=== PATIENT | female | born 1995 | race Caucasian/White ===

== ENCOUNTER → 2020-09-11 | Outpatient (CLI) | payer OTHER ==
--- NOTE | 2020-09-11 16:01 | REP ---
INDICATION: Z30.431 CHECK IUD. COMPARISON: None. TECHNIQUE: Transabdominal and transvaginal scanning were performed. FINDINGS: Uterine dimensions are normal at 9.2 by 3.2 x 4.4 cm. Endometrial echo is 0.4 cm thick and centrally placed. No free fluid is seen in the cul-de-sac. Visualized bladder hall are smooth. The IUD is noted in good position in the endometrial canal. The right ovary has dimensions of 3.6 x 1.4 x 2.6 cm. It's Doppler flow is normal with a resistive index of 0.56. The left ovary dimensions are normal as well at 2.8 x 1.5 x 2.6 cm. It's Doppler flow was normal with resistive index of 0.49. There is a complex follicle cyst in the left ovary measuring 2.2 x 1.8 x 1.3 cm. IMPRESSION: There is a complex cyst in the left ovary measuring 2.2 cm in greatest diameter. No other morphologic abnormality is seen. The IUD is seen in good position.. <Electronically signed by Hosea Shaw > 09/11/20 [id number]
== END ==
LOC: M WHC 13:31
PROVIDERS: ATTEND Obstetrics & Gynecology
DX: Z30.431 Encounter for routine checking of intrauterine contraceptive device (principal)